=== PATIENT | female | born 1985 | race African-American/Black ===

== ENCOUNTER 2017-10-14 17:31 | Emergency (ER) | payer MEDICARE, MEDICAID, SELFPAY ==
[2017-10-14 17:32] VITALS: BP 116/74; PULSE 99; RESP 16; TEMP 36.1; O2SAT 100; BMI 31.2
[2017-10-14 18:36] LABS: Bacteria 0 SEEN /hpf (None Seen); Mucous, Urine 0 SEEN /hpf (<or=2+); Squamous Epithelial Cells - UA 0 SEEN /hpf (5-10); White Blood Cells 0 SEEN /hpf (0-5)
[2017-10-14 19:05] LABS: Color, Urine Yellow (Yellow); Glucose, Dipstick Normal (Normal); Ketone-Dipstick Negative (Negative); Leukocyte Esterase-Dipstick Negative /ul (Negative); Nitrite-Dipstick Negative (Negative); Occult Blood-Urine 150 /ul (Negative); Protein-Dipstick Negative (Negative); Specific Gravity, Urine 1.015 (1.002-1.030); Urine Bilirubin Dipstick Negative (Negative); Urine Clarity Clear (Clear); Urine Urobilinogen Normal (Normal); Urine pH 6.5 (5.0 - 8.0)
--- NOTE | 2017-10-14 19:14 | ED.VISSUMM ---
- ER Visit Summary Date of Service: 10/14/17 Chief Complaint: [] Dysuria history of cerebral palsy frequent UTIs History of Present Illness: The patient is a 32 F [] 3 of cerebral palsy frequent UTIs she is developed dysuria over the last 24 hours and was brought in for evaluation by her caretakers. Otherwise her health has been good she has had no nausea vomiting fever no back pain. She has had a recent evaluation by her urologist include multiple studies, ultrasound, urinalysis, urine culture, that recently showed no signs of acute infection she is on Macrobid she takes daily, she was seen just a few days ago for the urine culture results it was decided she should stay on the Macrobid as there is no signs of a new infection, she constantly has signs of white cells in the urine and bacteria, she is scheduled to see her urologist this Wednesday to have a cystoscopy, she developed the dysuria over the last 24 hours and she was brought in by her caretakers Physical Examination: [] On exam she is in no distress head neck chest unremarkable abdomen soft nontender we did an external genital examination on her and generally her genitalia are normal there is no signs anything gross or acute that could be causing her dysuria there is no bleeding, straight cath urine is obtained and sent for UA and culture Test Results: [] Emergency Department Course and Treatment: [] In all the above to her caretakers at this time the UA was sent as was a urine culture given that she just within the last few days had a urine culture that showed no signs of gross obvious new infection and her urologist decided starting a new antibiotic was not in her best interest I explained we will start her on Pyridium will send a second urine culture report and have her follow-up with the urologist as scheduled on Wednesday for further management of all the above, the patient has no systemic signs of any kind she is resting cupping the bed she had no fever no cough no back pain the caretakers understand will have her follow-up she is to consider continuing the Macrodantin therapy daily Treatment Plan: [] Disposition: [] Stable home Impression: [] History of cerebral palsy with frequent UTIs This note was generated with b3 bioation software. It may contain incorrect words, spelling, and punctuation that were not noted in review of the chart prior to signing ED Disposition - Plan for ED Patient: Chief Complaint: Complaint Referrals: Sonu Rios MD [Primary Care Provider] -
--- NOTE | 2017-10-14 19:17 | ED.DEP ---
ED Disposition - Plan for ED Patient: Chief Complaint: Complaint Instructions: ED UTI Cystitis Female Referrals: Sonu Rios MD [Primary Care Provider] - Additional Instructions: Low up with your urologist as instructed and have them check the urine culture sent today
--- NOTE | 2017-10-14 19:18 | ED.DEP ---
ED Disposition - Plan for ED Patient: Chief Complaint: Complaint Instructions: ED UTI Cystitis Female Prescriptions: Phenazopyridine HCl [Pyridium] 200 mg PO BID #14 tab Referrals: Sonu Rios MD [Primary Care Provider] - Additional Instructions: Low up with your urologist as instructed and have them check the urine culture sent today
[2017-10-14 19:23] LABS: Amorphous Sediment 1+; Red Blood Cells-Urine 0-5 SEEN /hpf (0-5)
[2017-10-14] MEDS: Phenazopyridine 95 MG Tablet 190 MG PO (19:38)
[2017-10-14 19:43] VITALS: BP 111/58; PULSE 97; RESP 17; O2SAT 98
--- NOTE | 2017-10-14 19:44 | ED.RN ---
PT AND [facility] TEAM MEMBER INFORMED OF DISCHARGE INSTRUCTIONS AND HOME GOING PRESCRIPTIONS. PT GIVEN DOSE OF MEDICATION PRIOR TO DISCHARGE. NO DIFFICULTY SWALLOWING NOTED. PT AND WORKER VERBALIZE UNDERSTANDING OF INSTRUCTIONS AND WHEN TO RETURN TO ED FOR WORSENED OR NEW SX. PT TO FOLLOW UP WITH DR. SPAULDING AND UROLOGIST EARLY NEXT WEEK. THIS RN ASSISTED PT INTO WHEELCHAIR, AND WHEELED OUT OF DEPT BY [facility] WORKER.
== END 2017-10-14 19:47 | disposition home or self-care (01) ==
PROVIDERS: Emergency Provider Emergency Medicine; Family Provider Family Medicine; PCP Family Medicine
DX: R30.0 Dysuria (principal); G80.9 Cerebral palsy, unspecified; Z87.440 Personal history of urinary (tract) infections
CPT/HCPCS: 81001; 87086; 99283

== ENCOUNTER 2018-02-02 10:00 | Outpatient (RCR) | payer MEDICARE, MEDICAID, SELFPAY ==
--- NOTE | 2017-11-15 13:06 | HP.PTEVAL_ITS ---
Patient's Visit Information BRIANNE MAXWELL is a 32 year old F referred to Physical Therapy by DR.CBURSL Landon with a diagnosis of Cerbral Palsy. Date of Evaluation: 11/15/17 Physical Therapist: Mateusz Madrid - Visit Plan Frequency: 2x /Week Duration: 4 Weeks Plan: Start with BLE strengthening, tx training, gait progression, static balance in aquatic setting to increase stability with all functional mobility. - Subjective Subjective: Pt. is here today for her initial evaluation with diagnosis of CP. 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 Pt. is primarly uses the WC fro mobility in home and community. She does walk at her work shop ~50ft. per pt. report. Pt. reports having basement stairs at home, jail, but does not go down. Pt. is hopeful to increase her leg strength to walk more often at home and at work. Pt. does have a wc follow while walking at work. Pt. reports no pain in her legs currently. Pt. reprots having a gradual decline with leg strength and with walking. pt. reports no issues with txs, but does have some difficulty with getting her legs in bed. Pt. has a chair lift for car txs. Pt. declines doing exercises at home. Pt. reports being able to get all places in house with use of WC, but is having difficulty with ambulation at work and with in community. Pt. is hopeful to increase BLE strength in order to get back to walking longer distances with greater independence. - Objective POSTURE: Pt. has FH posture, overall slouched posture. Pt. heavily uses AD in stance (FWW). Pt. lack TKE in stance, crouched pattern noted. PALPATION: Pt. has no pain with palpation throughout her legs. Pt. has bilateral ankle AFOs, non articulating. NEUROLOGICAL: Patellar DTR 3+ hyper reflexive. Pt. has normal sensation throughout bilateral LEs. Pt. is unable to rise on heels and toes. ROM: Pt. has reduced B ankle ROM; knee with in normal limits on R side, lacking 10deg of knee ext on L side. Pt. has normal hip ROM bilaterally. MMT: RLE- ankle 2/5 throughout; knee- ext 3-/5, flexion 4-/5; hip- flexon 3/5, abd 3- /5, ext 3-/5. LLE- ankle 2/5 thrughout; knee- ext 2+/5, flexion 3-/5; hip- flexoon 3-5, abd 3-/5, ext 3-/5. Core- poor+. GAIT: Pt. ambulates with FWW with CGA, 19' with crouched pattern Pt. has lack of knee ext in stance and heavily uses UEs to complete. Static standing with CGA with FWW with improved TKE in stance, increased knee valgus noted. TXS- pt. is able to rise with BUEs with SBA, CGA to ascend, but difficulty with controlled eccentric lowering. - Balance Scores Tinetti Balance Score: 6 Tinetti Gait Score: 5 Tinetti Balance & Gait Score: 11 - Goals Goal 1:: Pt. to be I with HEP. Goal Time Frame: 4-6 Weeks Goal 2:: Pt. to increased tinetti to 18/28 indicating reduced risk for future falls. Goal Time Frame: 4-6 Weeks Goal 3:: Pt. to have increased BLE strength by 1/2 grade of all effected musculature to increase stability with all functional mobility. Goal Time Frame: 4-6 Weeks Goal 4:: Pt. to complete sit to stand and stand pivot transfers with FWW and SBA , increasing independence at home and community. Goal Time Frame: 4-6 Weeks Goal 5:: Pt. to ambulate 50ft. + with FWW with SBA with improved gait pattern allowing for increased independence in her home and community. Goal Time Frame: 4-6 Weeks - Rehabilitation Potential Physical Therapy Diagnosis: Pt. has signs and symptoms consistent with CP with subsequent bilateral LE weakness, difficulty with gait and functional mobility difficulty. She would benefit from PT to increase BLE strength, stability in stance, gait progression, stability with txs and balance. Rehabilitation Potential: Fair - Anticipated Interventions Patient/Client Instruction: Educate patient on: Condition, Plan of Care, Risk Factors, Benefits of Fitness Program For the Purpose of:: To foster healthy habits, To improve decision making, To facilitate caregiver knowledge, To improve self management, To prevent re-injury , To improve ability to perform tasks related to life management, To improve tolerance to ADL's Therapeutic Exercise to Include: Strength training, Power training, Endurance training, Balance training, Body mechanics, Postural training, Flexibilty training, Gait and locomotor training, Neuromotor development, In an aquatic setting For the Purpose of:: To increase ROM, To improve nutrient delivery to tissue, To increase oxygenation perfusion, To improve muscle performance and motor function, To improve ability to perform ADL's, To improve performance and independence with ADL's, To improve ability of physical actions for home/ community/work/leisure, To improve gait and locomotor functions, To improve health of tissue, To decrease soft tissue restriction, To increase flexibility/ ROM, To improve endurance, To improve balance, To improve safety with gait Thank you for the opportunity to evaluate your patient. For Medicare and Medicare HMO plans, please review the plan of care and approve it. It will need to be FAXED BACK to us at [phone] for Medicare purposes. Please let me know if there are questions or concerns regarding this plan of care. Physician Signature: Date:
--- NOTE | 2018-05-19 09:52 | HP.PTDCNRP_ITS ---
HP - Discharge Summary (1) - Patient Information BRIANNE MAXWELL was seen in my office for initial evaluation on 11/15/17. The following Plan of Care was established for this patient: Initial Frequency: 2x /Week Initial Duration: 4 Weeks - Anticipated Interventions Patient/Client Instruction: Educate patient on: Condition, Plan of Care, Risk Factors, Benefits of Fitness Program For the Purpose of:: To foster healthy habits, To improve decision making, To facilitate caregiver knowledge, To improve self management, To prevent re- injury, To improve ability to perform tasks related to life management, To improve tolerance to ADL's Therapeutic Exercise to Include: Strength training, Power training, Endurance training, Balance training, Body mechanics, Postural training, Flexibilty tra ining, Gait and locomotor training, Neuromotor development, In an aquatic setting For the Purpose of:: To increase ROM, To improve nutrient delivery to tissue, To increase oxygenation perfusion, To improve muscle performance and motor function, To improve ability to perform ADL's, To improve performance and independence with ADL's, To improve ability of physical actions for home/community/work/leisure, To improve gait and locomotor functions, To improve health of tissue, To decrease soft tissue restriction, To increase flexibility/ROM, To improve endurance, To improve balance, To improve safety with gait This patient was last seen in our office 11/15/17. Pertinent comments regarding their Physical therapy will appear below: Pt. was being seen in PT for her CP and generalized weakness. She was being treated in aquatic and land setting with foucs on functional mobility, standing tolerance and safety with gait. Pt. cancelled her last appointment and has not been back to PT. in several months. Pt. will be DC from PT at this point in time. At this point I will be discontinuing this patient from physical therapy. I would be happy to see this patient again in the future if found appropriate by the physician. Thank you! Mateusz Madrid
== END 2018-02-02 19:00 | disposition home or self-care (01) ==
LOC: PT 10:00
PROVIDERS: Family Provider Family Medicine; PCP Family Medicine; Visit Provider Family Medicine
DX: G80.9 Cerebral palsy, unspecified (principal)
CPT/HCPCS: 97110; 97113; 97162; 97530

== ENCOUNTER 2019-08-08 16:07 | Emergency (ER) | payer MEDICARE, MEDICAID, SELFPAY ==
[2019-08-08 16:08] VITALS: BP 116/68; PULSE 83; RESP 16; TEMP 36.4; O2SAT 100
--- NOTE | 2019-08-08 16:22 | ED.VIS.FEGU ---
History of Present Illness Chief Complaint: Complaint Informant: Patient, Friend Narrative: Patient presenting due to concern for urinary tract infection. Patient has a underlying history of cerebral palsy. Patient apparently gets frequent UTIs, last was treated by her urologist for 1 about a month ago. Patient of the course of the last couple of days has started to have thick urine and today they started to notice at the [place] [facility] that the patient was having signs of pink-tinged urine. Patient denies that she is having a significant amount of dysuria with this. No fevers nausea vomiting back pain or suprapubic pain associated with this. Review of systems otherwise negative. Past Medical History - Allergies and Home Meds Allergies/Adverse Reactions: Allergies No Known Allergies Allergy (Verified 10/14/17 17:32) Primary Care Physician: Sonu Rios MD [Primary Care Provider] - Past Medical History: - - Cerebral palsy, frequent UTIs Smoking Status: Never smoker Review of Systems General: Denies: Fever Cardiovascular: Denies: Chest pain Respiratory: Denies: Dyspnea, Cough Gastrointestinal: Denies: Nausea, Vomiting Genitourinary: Reports: - - Hematuria Skin: Denies: Rash Hematologic: Denies: Easy bleeding Allergy: Denies: Swelling of the mouth Physical Exam Vital Signs/Narrative: Vital Signs Temp Pulse Resp BP Pulse Ox 08/08/19 16:08 97.6 F L 83 16 116/68 100 Inital Vital Signs reviewed: Yes General: Well nourished, Well developed Head: Normocephalic, Atraumatic Eyes: Perrl, EOMI ENT: Moist mucous membranes Neck: Supple Cardiovascular: Regular rate, Regular rhythm, No murmurs Respiratory: No distress, CTA bilaterally Abdomen: Soft, Nontender Skin: Normal color Neurological: Alert, Oriented x3, - - Baseline weakness Psychological: Normal affect Diagnostic/Tx/Re-eval - Medical Decision/Diagnostic Studies Patient presented with urinary symptoms. Urinalysis was positive for UTI. test was negative. Patient will be treated with a course of Macrobid. Disposition: Home ED Disposition - Plan for ED Patient: Disposition: Home or Assisted Living Diagnosis: Urinary tract infection Instructions: Bladder Infection, Female (Adult) Prescriptions: Nitrofurantoin Macrocrystals [Macrobid] 100 mg PO Q12 #10 cap Prescription Printed Referrals: Sonu Rios MD [Primary Care Provider] - 1 Week
[2019-08-08 17:25] LABS: Mucous, Urine 0 SEEN /hpf (<or=2+)
[2019-08-08 17:30] LABS: Color, Urine Yellow (Yellow); Glucose, Dipstick Normal (Normal); Ketone-Dipstick Negative (Negative); Leukocyte Esterase-Dipstick 500 /ul (Negative); Nitrite-Dipstick Positive (Negative); Occult Blood-Urine 250 /ul (Negative); Protein-Dipstick 100 mg/dl (Negative); Urine Bilirubin Dipstick Negative (Negative); Urine Clarity Cloudy (Clear); Urine Urobilinogen Normal (Normal)
[2019-08-08 17:37] LABS: Squamous Epithelial Cells - UA 0-5 SEEN /hpf (5-10)
[2019-08-08 17:39] LABS: Red Blood Cells-Urine 5-10 SEEN /hpf (0-5)
[2019-08-08 17:41] LABS: Bacteria 3+ /hpf (None Seen)
[2019-08-08 17:44] LABS: White Blood Cells >100 SEEN /hpf (0-5)
[2019-08-08 17:46] LABS: Internal QC Validated? YES +Cl - CLEAR BKGD; Pregnancy, Urine Negative Negative
[2019-08-08 18:22] VITALS: RESP 16
[2019-08-08] MEDS: Nitrofurantoin Macrocrystals 100 MG Capsule PO (18:22)
--- NOTE | 2019-08-10 10:24 | ED.RN ---
Staff member called inquiring about a return to work slip. Dr Diane granted this request.
== END 2019-08-08 18:23 | disposition home or self-care (01) ==
PROVIDERS: Emergency Provider Emergency Medicine; Family Provider Family Medicine; PCP Family Medicine
DX: N39.0 Urinary tract infection, site not specified (principal); R31.9 Hematuria, unspecified; G80.9 Cerebral palsy, unspecified; Z87.440 Personal history of urinary (tract) infections
CPT/HCPCS: 81001; 81025; 99283

== ENCOUNTER → 2019-09-26 09:52 | Outpatient (CLI) | payer MEDICARE, MEDICAID, SELFPAY ==
--- NOTE | 2019-09-26 10:05 | BD_ITS ---
STUDY: DUAL ENERGY X-RAY ABSORPTIOMETRY / DXA REASON FOR EXAM: Female, 34 years old. PT ON DEPO SHOT FOR HORMONE THERAPY -- PT IN JAIL -- USES STEROID NASAL SPRAY DAILY -- UNKNOWN KARLOS- PT IS IN WHEELCHAIR -- NO EXERCISE TECHNIQUE: Bone Mineral Density (BMD) measurements of both forearms were obtained. COMPARISON: None. FINDINGS: Right Forearm: g/cm2 (0.786) / T-score (-1.1) / Z-score (-1.1) Left Forearm: g/cm2 (0.752) / T-score (-1.5) / Z-score (-1.5) BD/Dexa Bone Density/Append Skel IMPRESSION: The patient is considered osteopenic as outlined below according to World [place] Organization (WHO) criteria with a low fracture risk. Reference Information: The T-score is the number of standard deviations above or below the standard which is normal for young adults at their peak bone mineral density. The World Health Organization (WHO) interprets the T-scores as follows: Above -1 Normal bone density Between -1 and -2.5 Osteopenia Equal to / or below -2.5 Osteoporosis As a practical clinical guideline, osteopenia may be graded as follows: Mild -1 through -1.5 Moderate -1.6 through -2.0 Severe -2.1 through -2.4 The Z-score is the number of standard deviations above or below age-matched controls. A Z-score of less than -1.5 would be considered abnormal. References: 1. NIH Osteoporosis and Related Bone Diseases http://www.osteo.org 2. International Society for Clinical Densitometry http://www.iscd.org 3. National Osteoporosis Foundation http://www.nof.org Electronically Signed: Eugene Erazo, at 14:55 EST , Service support ,
== END ==
PROVIDERS: PCP Family Medicine; Referring Provider Obstetrics & Gynecology; Visit Provider Obstetrics & Gynecology
DX: Z13.820 Encounter for screening for osteoporosis (principal); Z30.42 Encounter for surveillance of injectable contraceptive; Z79.3 Long term (current) use of hormonal contraceptives; Z79.899 Other long term (current) drug therapy
CPT/HCPCS: 77081

== ENCOUNTER 2019-10-18 19:25 | Emergency (ER) | payer MEDICARE, MEDICAID, SELFPAY ==
[2019-10-18 19:27] VITALS: BP 100/71; PULSE 96; RESP 18; TEMP 37.3; O2SAT 99; BMI 28.2
--- NOTE | 2019-10-18 20:24 | CT_ITS ---
STUDY: CT BRAIN WITHOUT CONTRAST REASON FOR EXAM: Female, 34 years old. Fall RADIATION DOSAGE (If Supplied By Facility): CTDIvol = ( 44.99 ) mGy, DLP = ( 745.49 ) mGycm TECHNIQUE: Transaxial CT imaging of the brain was performed without administration of intravenous contrast material. Individualized dose optimization techniques were used for this CT. COMPARISON: None. FINDINGS: There is no acute bleed or infarct. There are normal white matter tracts. The ventricles are normal in configuration. There is no hydrocephalus. There is mucosal hypertrophy in the right maxillary sinus. The visualized paranasal sinuses are otherwise clear. The mastoid air cells are well aerated. There is no skull fracture. CT/Brain/Head without Contrast IMPRESSION: No acute intracranial abnormality. Right maxillary sinusitis. Electronically Signed: Sal Carnes, at 21:03 EDT Tel , Service support ,
--- NOTE | 2019-10-18 20:49 | RAD_ITS ---
STUDY: X-RAY CHEST REASON FOR EXAM: Female, 34 years old. Fever. Vomiting. TECHNIQUE: Frontal and lateral views of the chest COMPARISON: None. FINDINGS: The lungs are clear. There are no pleural effusions. There is no pneumothorax. The heart is normal in size. The visualized osseous structures are within normal limits. RAD/Chest PA and Lateral IMPRESSION: No acute thoracic pathology. Electronically Signed: Sal Carnes, at 21:10 EDT Tel , Service support ,
[2019-10-18] MEDS: Diphth,Pertuss(Acell),Tet Vac 0.5 ML Vial IM (20:57)
[2019-10-18 22:17] LABS: Mucous, Urine 0 SEEN /hpf (<or=2+)
[2019-10-18 22:20] LABS: Color, Urine Yellow (Yellow); Glucose, Dipstick Normal (Normal); Ketone-Dipstick 50 mg/dl (Negative); Leukocyte Esterase-Dipstick 500 /ul (Negative); Nitrite-Dipstick Negative (Negative); Occult Blood-Urine 250 /ul (Negative); Protein-Dipstick 30 mg/dl (Negative); Urine Bilirubin Dipstick Negative (Negative); Urine Clarity Sl. Cloudy (Clear); Urine Urobilinogen Normal (Normal)
[2019-10-18 22:29] LABS: Red Blood Cells-Urine 0-5 SEEN /hpf (0-5); Squamous Epithelial Cells - UA 0-5 SEEN /hpf (5-10); White Blood Cells 10-25 SEEN /hpf (0-5)
[2019-10-18 22:30] LABS: Bacteria 3+ /hpf (None Seen)
[2019-10-18 22:42] VITALS: BP 103/75; PULSE 88; RESP 16; O2SAT 100
--- NOTE | 2019-10-18 22:46 | ED.VISSUMM ---
- ER Visit Summary Date of Service: 10/18/19 Chief Complaint: Fever and fall History of Present Illness: The patient is a [address] Kaplan. She lives at a [facility] and has history of CP. They report she has a fever that began yesterday. Is been as high as 100.3 degrees. She is vomited once today. No blood in her emesis. Patient reports that she does have a cough. No difficulty breathing. She denies any abdominal pain or diarrhea. No dysuria or frequency. Patient fell out of her shower chair today. Is unclear whether she had a loss of consciousness. She denies this. But was not observed. She suffered a laceration to her chin. She is unsure when her last tetanus shot was. She denies any neck, back, shoulder, wrist, or hip pain. Physical Examination: Vitals: Stable. Afebrile. General: Well-nourished and well-developed. Head: Normocephalic 1 cm laceration to the mentum of her chin. Neck: Supple, no lymphadenopathy. No JVD. Nontender. Cardiovascular: Regular rate and rhythm. No murmurs. Respiratory: No respiratory distress. Clear to auscultation bilaterally. Abdominal: Soft, nontender, nondistended, normal bowel sounds. No guarding, rebound, or peritoneal signs. Back: Nontender. Extremities: Nontender, no edema. Skin: Normal color, no rash. Neurologic: Alert and oriented ?3. Cranial nerves II through XII are intact. Normal strength and sensation. Psych: Normal affect. Test Results: CT brain shows no acute disease. Chest x-ray is normal. UA does show UTI. Emergency Department Course and Treatment: Patient had her tetanus updated. She was treated with Zofran and Cipro p.o. She tolerated p.o. here without any difficulty. She had her wound repaired with Dermabond. Treatment Plan: Patient will be discharged with instructions to follow-up with Dr. Kaplan in 3 to 5 days for another exam. Her urine was sent for culture. She will placed on Cipro and Zofran at home. Return to the emergency department for any worsening symptoms. Disposition: To home in improved and stable condition. Impression: 1 1. UTI. 2. Chin laceration, 1 cm, repaired with Dermabond. This note was generated with Dragon dictation software. It may contain incorrect words, spelling, and punctuation that were not noted in review of the chart prior to signing ED Disposition - Plan for ED Patient: Disposition: Home or Assisted Living Instructions: Understanding Urinary Tract Infections (UTIs) Prescriptions: Ciprofloxacin [Cipro] 500 mg PO BID #14 tab Prescription Printed Ondansetron [Zofran Odt] 4 mg PO Q8H PRN PRN #10 tab PRN Reason: Nausea Prescription Printed Referrals: Sonu Rios MD [Primary Care Provider] - 3-5 Days
[2019-10-18] MEDS: Ciprofloxacin 500 MG Tablet PO (23:09)
[2019-10-18] MEDS: Ondansetron ODT 4 MG Tablet PO (23:09)
== END 2019-10-18 23:51 | disposition home or self-care (01) ==
LOC: ED 20:15
PROVIDERS: Emergency Provider Emergency Medicine; PCP Family Medicine
DX: N39.0 Urinary tract infection, site not specified (principal); S01.81XA Laceration without foreign body of other part of head, initial encounter; W08.XXXA Fall from other furniture, initial encounter; Y93.9 Activity, unspecified; Y92.199 Unspecified place in other specified residential institution as the place of occurrence of the external cause; G80.9 Cerebral palsy, unspecified
CPT/HCPCS: 12011; 70450; 71046; 81001; 87086; 87088; 90715; 99285

== ENCOUNTER 2024-04-28 09:42 | Emergency (ER) | payer MEDICARE, MEDICAID, SELFPAY ==
[2024-04-28] VITALS (7 sets, daily range): BP systolic 131–159; BP diastolic 90–117; PULSE 77–122; RESP 18–19; TEMP 37–37.4; O2SAT 97–100; BMI 28.5
--- NOTE | 2024-04-28 10:18 | EKG12_ITS ---
Test Reason : Blood Pressure : / mmHG Vent. Rate : 114 BPM Atrial Rate : 114 BPM P-R Int : 144 ms QRS Dur : 068 ms QT Int : 308 ms P-R-T Axes : 053 071 -42 degrees QTc Int : 424 ms Sinus tachycardia Nonspecific T wave abnormality Abnormal ECG No previous ECGs available Confirmed by Adam Kilgore ([id number]), fashion editor COURTNEY JAMES ([id number]) on 05/01/2024 1:37:59 PM Referred By: Confirmed By:Adam Kilgore
--- NOTE | 2024-04-28 10:28 | EDS_ITS ---
HPI History of Present Illness Chief Complaint: Complaint Informant: patient and other ([facility] staff ) Narrative Narrative: Patient is a 39-year-old female with history of cerebral palsy, mild developmental delay, overactive bladder and prior urinary tract infections. She had urinalysis that was positive on Wednesday, 5 days ago. Prescription for Bactrim was sent in however there is an issue with the pharmacy filling it and it was not ready until this morning. This morning caregivers at her [facility] thought she looked ill. They state her color was not right and she felt warm. Nurse assessed her and she was found to be tachycardic. She was sent to the ER for further evaluation. Patient is complaining of some upper abdominal pain as well as midthoracic pain. She has some chronic urinary incontinence and wears a depends. No report of any vomiting but patient reports mild nausea. Did have some Tylenol this morning around 7 or 8 AM. No report of any change in bowel movements. No other complaint or concern at this time. Patient did come in with a culture that showed greater than 100,000 CFU's of Proteus Mirabella as well as E. coli. No other complaints or concerns reported at the time. [facility] Home Medications ?Medication ?Instructions ?Recorded ?Last Taken ?Type fluticasone propionate 50 2 spray NARES DAILY 08/08/19 Unknown History mcg/actuation blister powder for inhalation medroxyprogesterone 150 mg/mL 150 mg IM .[id number] 08/08/19 Unknown History intramuscular syringe oxybutynin chloride 10 mg 10 mg PO DAILY 08/08/19 Unknown History tablet,extended release 24 hr ciprofloxacin HCl 500 mg tablet 500 mg PO BID #14 tabs 10/18/19 Unknown Rx ondansetron 4 mg disintegrating 4 mg PO Q8H PRN PRN Nausea #10 tabs 10/18/19 Unknown Rx tablet Allergy/AdvReac Type Severity Reaction Status Date / Time No Known Allergies Allergy Verified 10/20/23 14:46 Social History Smoking Status: Never smoker ROS ROS ED Constitutional Constitutional ED: Reports other Details: feels warm ; Denies chills or fever(s) ENT ENT ED: Denies sore throat Cardiovascular Cardiovascular: Denies chest pain Respiratory/Chest Respiratory/Chest: Denies cough or dyspnea Gastrointestinal Gastrointestinal: Reports abdominal pain and nausea; Denies constipation, claire rrhea or vomiting Genitourinary Genitourinary ED: Reports hematuria and other Details: + UTI DX outpatient ; Denies dysuria or urinary frequency Musculoskeletal Musculoskeletal: Reports back pain; Denies arthralgias or myalgias Integumentary Denies rash Neurologic Neurologic: Reports other Details: chronic weakness, spasticity from cerebral palsy ; Denies headache(s) EXAM Physical Exam Const Vital Signs: 04/28/24 09:44 04/28/24 10:18 04/28/24 11:43 Temperature 99.4 F H Temperature Source Oral Pulse Rate 122 H 104 H Respiratory Rate 18 19 H Blood Pressure 131/90 H 159/101 H Blood Pressure Mean 103 120 Pulse Ox 98 98 97 Oxygen Delivery Method Room Air Room Air Room Air 04/28/24 12:00 04/28/24 13:00 Temperature 98.6 F 98.9 F Temperature Source Oral Oral Pulse Rate 107 H 77 Respiratory Rate 18 18 Blood Pressure 148/101 H 158/117 H Blood Pressure Mean 116 130 Pulse Ox 97 98 Oxygen Delivery Method Room Air Room Air Positive well nourished and well developed General Appearance ED: well developed and NAD HEENT Reports dry mucous membranes HEENT Narrative: Normocephalic atraumatic Mouth ED: Yes dry mucous membranes Mouth: dry mucous membranes Neck supple Chest Wall inspection of chest normal and palpation of chest normal Resp normal respiratory effort Resp Narrative: Mildly coarse breath sounds scattered throughout Cardio regular rhythm Rate: tachycardic GI normal to inspection, nondistended, normoactive bowel sounds and non-tender Palpation: soft; Negative for tender Back/Spine no CVA tenderness Thoracic Spine / Upper Back: Negative for thoracic spinal tenderness Lumbar Spine / Lower Back: Negative for lumbar spinal tenderness Extremity General Extremety ED: Negative for edema or tenderness General Extremity: Negative for edema Neuro Neuro Narrative: Spasticity of the extremities is consistent with prior history of cerebral palsy. No focal deficits appreciated Sensorium / Orientation: alert Motor Exam: general weakness Psych mental status grossly normal Mood & Affect: Negative for depressed or anxious Skin no rashes or lesions noted MDM MDM MDM Narrative Medical decision making narrative: Patient is evaluated for tachycardia and low-grade temperature in the setting of a UTI that has not started antibiotics yet. She does have a positive culture. Patient has a temperature of 99.4 Fahrenheit and is tachycardic with a heart rate of 122 upon arrival. Will obtain a septic workup for concern of this urinary tract infection progressing to bacteremia or pyelonephritis. She overall is well-appearing. Will be given IV fluids as well as Toradol. I did pull up the patient's sensitivities through [facility]. Patient is susceptible to pretty much everything except for Macrobid and ampicillin/Unasyn. Will give a dose of IV Rocephin in the ER while workup is pending. EKG obtained part of sepsis protocol which does show signs tachycardia as well some T wave inversions. Will add on a troponin however suspect the changes are either chronic (do not have a prior EKG to compare to) or rate related. Workup is normal. Urinalysis is consistent with infection but this is to be expected. She is normal white blood cell count, no shift, normal kidney functi on and a normal lactate. Her troponin is normal. Patient's tachycardia improved with IV fluids and Toradol. Will monitor the patient now after receiving IV Rocephin to ensure that she does not develop any hypotension of this is good will discharge back to [facility]. This time I think patient can safely be discharged home given that she does not have findings consistent with sepsis, bacteremia (culture is pending) and now has the appropriate antibiotics that are culture sensitive. Less addition for pyelonephritis if she does not have any CVA tenderness, leukocytosis or vomiting. Patient and caregivers agreeable this plan of care. Lab Data Attestation: I reviewed the patient's lab results. Labs: Laboratory Results - last 24 hr 04/28/24 04/28/24 10:37 10:51 WBC 9.6 RBC 4.66 Hgb 12.4 Hct 39.8 MCV 85.4 MCH 26.6 L MCHC 31.2 L RDW Std Deviation 44.1 H RDW Coeff of Soo 14.3 Plt Count 233 MPV 9.5 Immature Gran % (Auto) 0.400 Neut % (Auto) 88.6 H Lymph % (Auto) 3.8 L Sawyer % (Auto) 6.0 Eos % (Auto) 1.1 Baso % (Auto) 0.1 Absolute Neuts (auto) 8.5 H Absolute Lymphs (auto) 0.36 L Nucleated RBC % 0 PT 14.3 INR 1.1 APTT 31.1 Sodium 142 Potassium 3.1 L Chloride 110 H Carbon Dioxide 24.0 Anion Gap 8 BUN 10 Creatinine 0.49 L Estim Creat Clear Calc 154.67 Est GFR (MDRD) Af Amer 180 Est GFR (MDRD) Non-Af 149 BUN/Creatinine Ratio 20.2 H Glucose 90 Lactic Acid 0.7 Calcium 9.1 Total Bilirubin 0.40 AST 10 L ALT 14 Alkaline Phosphatase 104 Troponin I High Sens 4 Total Protein 7.1 Albumin 3.5 Globulin 3.6 Albumin/Globulin Ratio 1.0 Urine Color Yellow Urine Clarity Sl. Cloudy Urine pH 7.0 Ur Specific Mallie 1.010 Urine Protein 30 H Urine Glucose (UA) Normal Urine Ketones 15 H Urine Occult Blood 250 H Urine Nitrite Negative Urine Bilirubin Negative Urine Urobilinogen Normal Ur Leukocyte Esterase 500 H Urine RBC 0-5 SEEN Urine WBC 25-50 SEEN Ur Squamous Epith Cells 10-25 SEEN Urine Bacteria 2+ Urine Mucus 0 SEEN Rhythm Strip Rhythm Strip: Sinus Tach Rate: 114 Ectopy: None EKG Initial EKG: Attestation: I personally reviewed and interpreted this EKG as follows: Comments: Sinus tachycardia rate of 114 bpm Normal axis Normal intervals Nonspecific T wave inversions in inferior leads as well as V1 through V3. No reciprocal changes. No prior EKG available for comparison Discharge Plan Triage Chief Complaint: Complaint ED Provider: Yolie Pierre Dx/Rx/DC Orders Clinical Impression: UTI (urinary tract infection), Tachycardia Instructions: ED UTIs Women Prescriptions: No Action fluticasone propionate 50 MCG blister with device 2 spray NARES DAILY oxybutynin chloride 10 MG tablet extended release 24hr 10 mg PO DAILY medroxyprogesterone 150 MG/ML syringe 150 mg IM .[id number] ciprofloxacin HCl 500 MG tablet 500 mg PO BID Qty: 14 0RF ondansetron 4 MG tablet 4 mg PO Q8H PRN PRN (Reason: Nausea) Qty: 10 0RF Primary Care Provider: Sonu Rios Referrals: Sonu Rios MD [Primary Care Provider] - Activity Restrictions/Additional Instructions: Start taking the Bactrim which was prescribed tonight. Both organisms are sensitive to this. If Tasheia develops worsening fever, vomiting or is not tolerating antibiotics please return to the emergency room. She did receive a dose of IV Rocephin while in the emergency room. Take the next dose of antibiotics this evening. I would recommend alternate ibuprofen and Tylenol as needed for fever or discomfort. Print Language: Burkinan Disposition Disposition: Home, Self Care
[2024-04-28] MEDS: 0.9% Normal Saline (1000mL) 1,000 ML 999 ML IV (10:37)
[2024-04-28 10:53] LABS: Absolute Lymphocyte Count 0.36 X10^3/uL (0.83-4.51); Absolute Neutrophil Count 8.5 X10^3/uL (2.0-7.7); Basophil# 0.01 X10^3/uL; Basophil% 0.1 % (0-1); Eosinophil# 0.11 X10^3/uL; Eosinophils% 1.1 % (0-5); Hematocrit 39.8 % (37-47); Hemoglobin 12.4 g/dL (12.0-15.0); Lymphocyte # 0.36 X10^3/ul (0.83-4.51); Lymphocyte % 3.8 % (19-41); Mean Corp Hgb Conc 31.2 g/dL (32-36); Mean Corpuscular Hgb 26.6 pg (27.0-32.0); Mean Corpuscular Volume 85.4 fL (81-99); Mean Platelet Vol. 9.5 fl (6.2-12.0); Monocyte# 0.57 X10^3/uL; NRBC Flagged by Analyzer 0 % (0-5); Neutrophil # 8.48 X10^3/uL (2.7-7.7); Neutrophil % 88.6 % (47-70); POSITIVE DIFFERENTIAL YES; Platelet Count 233 K/mm3 (150-450); RBC Distribution Width CV 14.3 % (11.6-14.6); RBC Distribution Width SD 44.1 fl (35.1-43.9); Red Blood Count 4.66 M/mm3 (4.2-5.4); White Blood Count 9.6 K/mm3 (4.4-11.0)
[2024-04-28 10:55] LABS: Mucous, Urine 0 SEEN /hpf (<or=2+)
[2024-04-28 11:01] LABS: Color, Urine Yellow (Yellow); Glucose, Dipstick Normal (Normal); Ketone-Dipstick 15 mg/dl (Negative); Leukocyte Esterase-Dipstick 500 /ul (Negative); Nitrite-Dipstick Negative (Negative); Occult Blood-Urine 250 /ul (Negative); Protein-Dipstick 30 mg/dl (Negative); Urine Bilirubin Dipstick Negative (Negative); Urine Clarity Sl. Cloudy (Clear); Urine Urobilinogen Normal (Normal)
[2024-04-28 11:01] LABS: International Normalized Ratio 1.1; Prothrombin Time (Protime)PT. 14.3 SECONDS (11.7-14.9)
[2024-04-28 11:02] LABS: Partial Thromboplast Time 31.1 Seconds (24.1-36.2)
[2024-04-28 11:07] LABS: Bacteria 2+ /hpf (None Seen); Squamous Epithelial Cells - UA 10-25 SEEN /hpf (5-10); White Blood Cells 25-50 SEEN /hpf (0-5)
[2024-04-28 11:08] LABS: Red Blood Cells-Urine 0-5 SEEN /hpf (0-5)
[2024-04-28 11:20] LABS: AST(SGOT) 10 U/L (15-37); Alanine Aminotransfer ALT/SGPT 14 U/L (13-56); Albumin, Serum 3.5 g/dL (3.2-5.0); Alkaline Phosphatase 104 U/L (45-117); Anion Gap 8 (5-15); BUN 10 mg/dL (7-18); BUN/Creat Ratio 20.2 RATIO (10-20); Calcium,Total 9.1 mg/dL (8.5-10.1); Chloride 110 mmol/L (98-107); Creatinine, Serum 0.49 mg/dL (0.55-1.02); EST Glomerular Filtration Rate 149 mL/min (>60); Est Glom Filt Rate - Afr Amer 180 mL/min (>60); Estimated Creatinine Clearance 154.67 ml/min; Globulin 3.6 g/dL (2.2-4.2); Glucose 90 mg/dL (74-106); Potassium 3.1 mmol/L (3.5-5.1); Protein, Total 7.1 g/dL (6.4-8.2); Sodium Level 142 mmol/L (136-145); Troponin-I HS 4 pg/mL (3.0-54.0)
[2024-04-28 11:21] LABS: Lactic Acid 0.7 mmol/L (0.4-1.9)
[2024-04-28] MEDS: Ketorolac 15 MG/ML Vial IV (11:55)
[2024-04-28] MEDS: Ceftriaxone 1 GM/50 ML BAG IV (12:17)
== END 2024-04-28 15:07 | disposition home or self-care (01) ==
PROVIDERS: Emergency Provider Emergency Medicine; PCP Family Medicine; Visit Provider Emergency Medicine
DX: N39.0 Urinary tract infection, site not specified (principal); R00.0 Tachycardia, unspecified
CPT/HCPCS: 80053; 81001; 83605; 84484; 85025; 85610; 85730; 87040; 87077; 87086; 87088; 87186; 93005; 96361; 96365; 96375; 96376; 99284